=== PATIENT | male | born 1935 | race African-American/Black ===

== ENCOUNTER → 2018-08-09 | Outpatient (CLI) | payer OTHER ==
[~2018-08-09] VITALS: Ht 180.3 cm; Wt 108.9 kg
[~2018-08-09] MED LIST: ACETAMINOPHEN325 M1 PO; AMOXICILLIN 50500 M1 PO; ASPIRIN325 PO; CARVEDILOL12.5 MG PO; CATAPRESS3 TRANSDERM; COLACE100 MG PO; CRESTOR40 MG PO; DESENEX; DICLOFENAC SODI75 MG PO; ENDUR-ACIN500 MG PO; ENTRESTO 49 MG1 EACH PO; EPLERENONE25 MG PO; FLOMAX0.4 MG PO; FLUTICASONE PRO16 GM NASAL; HYDROCODON-ACE1 EAC7 PO; LASIX 20 MG TAB20 MG PO; LISINOPRIL40 MG PO; MIRALAX17 GM PO; OXYBUTYNIN 5 MG5 M1 PO; PACERONE 200 M200 M1 PO; PERCOCET PO; REFRESH CELLUVI1 APP OPHTHALMIC; RESTASIS1 EACH OPHTHALMIC; SENNA8.6 MG PO; TAMSULOSIN HCL0.4 M1 PO; TOPROL XL50 MG PO; TROSPIUM CHLORI20 MG PO; ZANTAC 150MG T150 MG PO; ZOLOFT100 MG PO; ZYRTEC10 M5 PO
--- NOTE | ~2018-08-09 | HPC ---
[facility] [address] [place] [address] PAIN MANAGEMENT CONSULTATION Name: MALINA SINGH Room #: REG DANG Hodan#: [id number] Admission: 08/09/18 Attend Phys: Medhat Tariq MD Discharge: Date of : 39 Report #: [id number] THIS REPORT FOR: //name// CC: TOM Tariq DATE OF SERVICE: 08/09/2018 CHIEF COMPLAINT: Back pain. FOLLOWUP HISTORY: The patient is an 82-year-old gentleman who has followed up in the pain clinic because of chronic pain involving his low back area. He has had trigger point injections in the low back area in the past, did not feel that he received significant benefit from that. He has been seen by chiropractic professionals x 3. He has undergone acupuncture and physical therapy. Has used TENS units, all without significant benefit. Has used Icy Hot, noted some benefit from that. Otherwise, his pain continues to be quite problematic. He has axial back pain and left hip pain. Notes that sitting helps as well as when he walk into the store if he leans forward on a cart. Notes more problems with walking longer distances. Has some left knee problem where it feels like his knee gives way at times. Has not had epidural steroid injections. He has not had any advanced imaging. With prolonged walking, notes pain and discomfort down into his calves. This is relieved when he rests. The patient had a CT of his back with findings of osteophytosis throughout his lumbar spine, greatest at L2-L3, L2 through L4. Mild grade 1 anterolisthesis of L4 on L5, less than 25%. Level at L4-L5 shows a disk bulge with creating mild spinal stenosis as well as compromise of the neural foramen at that level. L3-L4 shows moderate bulging and effacement of the anterior spinal canal, combined with hypertrophy of the ligamentum flavum. There is moderate spinal canal stenosis as well as compromise of both neural foramen. ALLERGIES: SIMVASTATIN/LATEX GLOVES. MEDICATIONS: Entresto 49 mg/51 mg, eplerenone 25 mg, Crestor 40 mg, ophthalmic drops cyclosporine, senna, Zoloft 100 mg, MiraLax 17 grams, Voltaren 75 mg p.o. b.i.d., Zyrtec 10 mg, Refresh Celluvisc eye drops b.i.d., Pacerone 200 mg, Lasix 20 mg, Trospium 20 mg b.i.d., Flomax 0.4 mg, Zanaflex 150 mg, fluticasone 16 grams spray suspension nasal, Coreg 12.5 mg b.i.d., aspirin 325 mg. PAST MEDICAL HISTORY: Pacemaker/defibrillator, heart failure, dermatitis, hypertension, degenerative joint disease, benign prostatic hypertrophy, obstructive sleep apnea, hyperlipidemia, COPD, posttraumatic stress disorder, hyperglycemia, coronary artery disease, gastroesophageal reflux, type 2 diabetes, recurrence of major depression, abdominal aortic aneurysm, thoracic aneurysm, bilateral cataracts, cardiomyopathy and allergic rhinitis. [facility] [address] [place] [address] PAIN MANAGEMENT CONSULTATION Name: MALINA SINGH Room #: REG DANG Pettit#: [id number] Admission: 08/09/18 Attend Phys: Medhat Tariq MD Discharge: Date of : 37 Report #: [id number] PAST SURGICAL HISTORY: History of colonic polyps removed. Percutaneous transcoronary angioplasty, implanted cardiac defibrillator, intraocular lenses, ulnar nerve lesion, colon cancer and cholecystectomy. SOCIAL HISTORY: He is retired. REVIEW OF SYSTEMS: Generally in good health, fatigue, weakness, wears glasses, glaucoma, hearing loss, chronic sinus problems, shortness of breath, heart trouble, shortness of breath with walking, frequent urination, awakens at night to urinate. LABORATORY DATA: CT of the lumbar spine dated 06/07/2018: 1. Neurogenic claudication. 2. L1-L2 moderate circumferential disk bulge, widening of effacement of the anterior spinal canal and mild central canal stenosis. Both neural foramen appear narrowed, especially on the left. 3. L3-L4 moderate circumferential disk bulge with effacement of the anterior spinal canal, combined with hypertrophy of the ligamentum flavum. There is moderate spinal canal stenosis as well as compromise of both neural foramen. 4. L4-L5 circumferential disk bulge, creating mild spinal canal stenosis as well as compromise of the neural foramen. 5. L5-S1 circumferential bulge without spinal canal or neural foraminal stenosis. PAIN CLINIC ASSESSMENT AND PQRS: 1. History of osteoarthritis. The patient has arthritic changes in the lower portion of his back. 2. Rheumatoid arthritis. He is not being treated for rheumatoid arthritis. 3. Height 5 feet 11 inches, weight 240 pounds, BMI is 35. 4. Vital Signs: Blood pressure 195/98, pulse 65, respiratory rate 16, room air saturation 97%. 5. Pain intensity 10/10. 6. Fall risk. The patient has not fallen in the last 3 months. 7. Blood thinner. The patient is not on a blood thinning medication. 8. Hypertension. The patient has been treated for hypertension. 9. Opioids greater than 6 weeks. The patient is not on an opioid medications on a regular basis. 10. Risk assessment tool low for opioid use. 11. Functional assessment . 12. Recreational drug use. The patient denies use of recreational drugs. 13. Tobacco: The patient has never smoked. 14. Alcohol: The patient denies use of alcoholic beverages. PHYSICAL EXAMINATION: GENERAL: The patient is a well-developed, well-nourished gentleman. The patient has a pacemaker in place. [facility] [address] [place] [address] PAIN MANAGEMENT CONSULTATION Name: MALINA SINGH Room #: REG [facility].#: [id number] Admission: 08/09/18 Attend Phys: Medhat Tariq MD Discharge: Date of : 37 Report #: [id number] CHEST: Generally clear to auscultation. MUSCULOSKELETAL: Has some complaints of pain in the low back area. Has some pain in the left hip area near the greater trochanteric bursa. He has muscle strength judged to be 4+/5 for the upper extremity muscle strength. Lower extremity muscle strength is 4+/5. The patient notes increased pain and discomfort with prolonged standing. Unable to walk except for short distances before onset of pain and discomfort. Notes that he sits on a stool at home when he is doing activities because of the worsening of pain. IMPRESSION: 1. Clinical findings and laboratory findings consistent with spinal stenosis and neurogenic claudication. 2. Pacemaker/defibrillator. 3. Heart failure. 4. Dermatitis. 5. Hypertension. 6. Degenerative joint disease. 7. Benign prostatic hypertrophy. 8. Obstructive sleep apnea. 9. Hyperlipidemia. 10. Chronic obstructive pulmonary disease. 11. Posttraumatic stress disorder. 12. Hyperglycemia. 13. Coronary artery disease. 14. Gastroesophageal reflux. 15. Type 2 diabetes. 16. Recurrence of major depression. 17. Abdominal aortic aneurysm. 18. Thoracic aneurysm. 19. Bilateral cataracts. 20. Cardiomyopathy. 21. Allergic rhinitis. RECOMMENDATIONS: We discussed neurogenic claudication with the patient. The patient may find the use of a low dose of opioid medication is helpful. Possibility of an epidural steroid injection is a possibility. He will follow up in the future as needed. We would like to thank you for letting us participate in his care. By: [id number] Medhat Tariq MD /MICHELINE
[2018-08-09 10:07] VITALS: BP 195/98
== END ==
LOC: PAIN 08:40
DX: M54.5 Low back pain (principal); M06.9 Rheumatoid arthritis, unspecified; I10 Essential (primary) hypertension; Z68.35 Body mass index [BMI] 35.0-35.9, adult; Z91.81 History of falling; Z79.899 Other long term (current) drug therapy

== ENCOUNTER → 2018-08-28 | Outpatient (CLI) | payer OTHER ==
[~2018-08-28] VITALS: Ht 180.3 cm; Wt 112.1 kg
--- NOTE | ~2018-08-28 | HPC ---
[facility] [address] [place] [place] [address] PAIN MANAGEMENT CONSULTATION Name: MALINA SINGH Room #: REG DANG Hodan#: [id number] Admission: 08/28/18 Attend Phys: Medhat Tariq MD Discharge: Date of : 37 Report #: [id number] THIS REPORT FOR: //name// CC: TOM Tariq DATE OF SERVICE: 08/28/2018 CHIEF COMPLAINT: "Back pain down into my legs when I am walking." FOLLOWUP HISTORY: The patient is an 82-year-old gentleman who has been referred to the pain clinic because of chronic low back pain. He has pain and discomfort in the lower portion of his back. He has had trigger point injections, been seen by a chiropractor, undergone acupuncture as well as undergone physical therapy. He has tried a TENS unit, all without significant benefit. He continues to have pain, which is quite problematic. When he goes to the store, he rides around an electric cart. Notes that if he walks and uses a cart leaning forward he has less pain and discomfort. Notes that the pain involves his low back. Prolonged standing which causes pain down into his calf. Notes that the pain was relieved after about 5 minutes if he sits and rests. Has finding in his back of spinal stenosis. At this juncture, he is trying to decide whether or not he wants to proceed with an epidural steroid injection. ALLERGIES: SIMVASTATIN, LATEX GLOVES. CURRENT MEDICATIONS: Entresto 49 mg/51 mg, eplerenone 25 mg, Crestor 40 mg, ophthalmic drops cyclosporine, senna, Zoloft 100 mg, MiraLax 17 mg, Voltaren 75 mg b.i.d., Zyrtec 10 mg, eye drops Celluvisc b.i.d., Pacerone 200 mg, Lasix 20 mg, trospium 20 mg b.i.d., Flomax 0.4 mg, Zanaflex 150 mg, fluticasone 16 ____ spray suspension nasal, Coreg 12.5 mg b.i.d., aspirin 325 mg. PAIN CLINIC ASSESSMENT AND PQRS: 1. History of osteoarthritis. The patient has some arthritic changes in the lower portion of his back with spinal stenosis. 2. Rheumatoid arthritis. The patient is not being treated for rheumatoid arthritis. 3. Height 5 feet 11 inches, weight 247 pounds, BMI 34.5. 4. Vital signs: Blood pressure 168/99, pulse 70, respiratory rate 18, room air saturation 99%. 5. Pain intensity /10. 6. Fall history. The patient has not fallen in the last 3 months. 7. Blood thinner. The patient is not on a blood thinning medication. 8. Hypertension. The patient is being treated for hypertension. 9. Opioids greater than 6 weeks. The patient is not an opioid regimen. 10. Risk assessment tool for opioids low. 11. Functional assessment tool, . [place] [address] PAIN MANAGEMENT CONSULTATION Name: MALINA SINGH Room #: REG CLYaima Pettit#: [id number] Admission: 08/28/18 Attend Phys: Medhat aTriq MD Discharge: Date of : 37 Report #: [id number] 12. Recreational drug use. The patient denies use of recreational drugs. 13. Tobacco: The patient has never smoked. 14. Alcohol: The patient denies frequent use of alcoholic beverages. PHYSICAL EXAMINATION: GENERAL: The patient is a well-developed, well-nourished black gentleman. His speech is fluent. HEENT: Normocephalic, atraumatic. Extraocular eye muscles intact. The patient wears glasses. CHEST: Clear to auscultation. HEART: Regular, the patient has a pacemaker in place. MUSCULOSKELETAL: The patient complains of pain in his low back. His pain radiates down to his left hip and has some pain and discomfort in the left greater trochanteric bursa area. Muscle strength in the lower extremity, judged to be 4+/5 for the lower extremity. The patient also has pain and discomfort that radiates down in the lower portion of his back radiating down into the calf areas with standing and walking for short distances. Notes his pain improves when he sits down. IMPRESSION: 1. Clinical findings of laboratory consistent with spinal stenosis and neurogenic claudication. 2. Pacemaker/defibrillator. 3. Heart failure. 4. Dermatitis. 5. Hypertension. 6. Degenerative joint disease. 7. Benign prostatic hypertrophy. 8. Obstructive sleep apnea. 9. Hyperlipidemia. 10. Chronic obstructive pulmonary disease. 11. Posttraumatic stress disorder. 12. Hyperglycemia. 13. Coronary artery disease. 14. Gastroesophageal reflux. 15. Type 2 diabetes. 16. Recurrence of major depression. 17. Abdominal aortic aneurysm. 18. Thoracic aneurysm. 19. Bilateral cataracts. 20. Cardiomegaly. 21. Allergic rhinitis. RECOMMENDATIONS: We discussed treatment options with the patient. Risks and benefits of an epidural steroid injection were discussed. Possible complications which could include but are not limited to infection, worsening [facility] [address] [place] [address] PAIN MANAGEMENT CONSULTATION Name: MALINA SINGH Room #: REG DANG Pettit#: [id number] Admission: 08/28/18 Attend Phys: Medhat Tariq MD Discharge: Date of : 37 Report #: [id number] pain, no improvement in pain, spinal headache, nerve damage were discussed. At this juncture, the patient is on the fence as to whether or not he would like to have this procedure done. He feels that he still has pain and discomfort. 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 He would like to have some certainty that this procedure would be successful. We explaining to him the options of doing the procedure. Usually a 60-70% can improve as a result of the procedure. He is not sure that he would like to undergo it at this juncture. He will give it some thought. He will return to the pain clinic as needed. We would like to thank you for letting us participate in his care. We hope he continues to improve. By: [id number] Medhat Tariq MD /MICHELINE
[2018-08-28 09:44] VITALS: BP 168/99
--- NOTE | 2018-08-28 09:47 | NUR ---
Pain Clinic Assessment: 1. History of Osteoarthritis: History of Rheumatoid Arthritis: 2. Height: 5 ft. 11 in. 180.3 cm. Weight: 247.2 lb. oz. 112.129 kg. Patient's BMI: 34.5 3. Vital Signs: BP: 168/99 Pulse: 70 Resp: 18 Temp: 02 Sat: 99 ECG Mon: 4. Pain Intensity: 8 5. Fall Risk: Dizziness: Y Needs help standing or walking: N Fallen in the last 3 months: N Fall risk comments: 6. Patient on Blood Thinner: None 7. History of Hypertension: Y 8. Opioid Therapy greater than 6 weeks: N Opiate Contract Signed: 9. Risk Assessment Tool Provided: LOW 10. Functional Assessment Tool: 11. Recreational Drug Use: Never Drug Type: Tobacco Use: Never Smoker Tobacco Type: Amount or Packs/day: How Many Years: Alcohol Use: No Frequency: Quant:
== END ==
LOC: PAIN 06:55
DX: M19.90 Unspecified osteoarthritis, unspecified site (principal); I11.0 Hypertensive heart disease with heart failure; I50.9 Heart failure, unspecified; E11.65 Type 2 diabetes mellitus with hyperglycemia; I25.10 Atherosclerotic heart disease of native coronary artery without angina pectoris; K21.9 Gastro-esophageal reflux disease without esophagitis; E78.5 Hyperlipidemia, unspecified; J44.9 Chronic obstructive pulmonary disease, unspecified; L30.9 Dermatitis, unspecified; N40.0 Benign prostatic hyperplasia without lower urinary tract symptoms; G47.33 Obstructive sleep apnea (adult) (pediatric); I71.4 Abdominal aortic aneurysm, without rupture; I71.2 Thoracic aortic aneurysm, without rupture; J30.9 Allergic rhinitis, unspecified; H26.9 Unspecified cataract; F33.9 Major depressive disorder, recurrent, unspecified; Z95.810 Presence of automatic (implantable) cardiac defibrillator